=== PATIENT | male | born 1995 | race Caucasian/White ===

== ENCOUNTER 2017-05-01 18:52 | Outpatient (CLI) | payer SELFPAY | END 2017-05-01 19:17 | disposition EMS.NT | LOC: EMS 18:52 | PROVIDERS: ATTEND Surgery | DX: S00.01XA Abrasion of scalp, initial encounter (principal); S90.512A Abrasion, left ankle, initial encounter; S90.511A Abrasion, right ankle, initial encounter; V87.8XXA Person injured in other specified noncollision transport accidents involving motor vehicle (traffic), initial encounter; Y92.410 Unspecified street and highway as the place of occurrence of the external cause ==

== ENCOUNTER 2017-08-20 08:00 | Outpatient (CLI) | payer MEDICAID ==
[2017-08-20 19:00] LABS: BILIRUBIN,URINE NEGATIVE (NEGATIVE); GLUCOSE, URINE (UA) NEGATIVE (NEGATIVE); KETONES,URINE (UA) NEGATIVE (NEGATIVE); LEUKOCYTE ESTERASE, URINE NEGATIVE (NEGATIVE); NITRITE,URINE NEGATIVE (NEGATIVE); OCCULT BLOOD,URINE MODERATE (NEGATIVE); PROTEIN,URINE NEGATIVE (NEGATIVE); UROBILINOGEN,URINE 0.2 (NORMAL) E.U./dL (NORMAL)
[2017-08-20 19:05] LABS: BASOPHILS # (AUTO) 0.1 10^3/uL (0.0-0.1); BASOPHILS % (AUTO) 1.1 %; EOSINOPHILS # (AUTO) 0.5 10^3/uL (0.0-0.7); EOSINOPHILS % (AUTO) 6.5 %; HGB - HEMOGLOBIN 13.7 g/dL (14.0-18.0); LYMPHOCYTES # (AUTO) 3.3 10^3/uL (1.5-3.5); LYMPHOCYTES % (AUTO) 47.3 %; MEAN CORPUSCULAR HEMOGLOBIN 30.3 pg (27.0-31.0); MEAN CORPUSCULAR HGB CONC 32.7 g/dL (32.0-36.0); MEAN CORPUSCULAR VOLUME 92.8 fL (80.0-94.0); MEAN PLATELET VOLUME 8.1 fL (7.4-11.4); MONOCYTES # (AUTO) 0.5 10^3/uL (0.0-1.0); MONOCYTES % (AUTO) 7.5 %; NEUTROPHILS # (AUTO) 2.6 10^3/uL (1.5-6.6); NEUTROPHILS % (AUTO) 37.6 %; PLT - PLATELET COUNT 319 10^3/uL (130-450); RED BLOOD COUNT 4.51 10^6/uL (4.70-6.10); RED CELL DISTRIBUTION WIDTH 13.3 % (12.0-15.0)
[2017-08-20 19:13] LABS: BACTERIA,URINE Rare /HPF (None Seen); CLARITY,URINE CLEAR (CLEAR); SQUAMOUS EPITHELIAL CELL,UR RARE Squamous (<= Few)
[2017-08-20 19:22] LABS: ALBUMIN 4.3 g/dL (3.2-5.5); ALBUMIN/GLOBULIN RATIO 1.5 (1.0-2.2); BILIRUBIN,TOTAL 0.7 mg/dL (0.2-1.0); CALCIUM 8.8 mg/dL (8.5-10.3); CREATININE 0.8 mg/dL (0.6-1.2); TOTAL PROTEIN 7.2 g/dL (6.7-8.2)
[2017-08-21 11:28] LABS: HEPATITIS C ANTIBODY NON-REACTIVE (NON-REACTIVE)
[2017-08-21 15:01] LABS: HIV AG/AB 4TH GEN NON-REACTIVE (NON-REACTIVE)
== END 2017-08-20 08:01 | disposition home or self-care (01) ==
LOC: LAB.N 08:00
PROVIDERS: ATTEND Physician Assistant Medical
DX: R59.1 Generalized enlarged lymph nodes (principal); Z72.51 High risk heterosexual behavior; A51.0 Primary genital syphilis
CPT/HCPCS: 36415; 80053; 81001; 81599; 85025; 86592; 86803; 87086; 87389; 87491; 87591

== ENCOUNTER 2017-09-06 01:59 | Outpatient (CLI) | payer MEDICAID | END 2017-09-06 02:00 | disposition critical access hospital (66) | LOC: EMS 01:59 | PROVIDERS: ATTEND Surgery | DX: R45.1 Restlessness and agitation (principal) | CPT/HCPCS: A0425; A0429 ==

== ENCOUNTER 2017-09-06 02:22 | Emergency (ER) | payer MEDICAID ==
[2017-09-06] MEDS ORDERED: LORazepam 2 MG/ML VIAL IVP STA (02:37)
[2017-09-06] MEDS ORDERED: SODIUM CHLORIDE 0.9% 1,000 ML IV STA (02:37)
--- NOTE | 2017-09-06 02:37 | ED Physician Documentation ---
PD HPI OVERDOSE <Mehrdad Betts - Last Filed: 09/06/17 02:36> - History obtained from History obtained from: Patient - History of Present Illness Timing - onset: Last night Subtance(s) ingested: Illicit drug Associated symptoms: Agitated, Combative Contributing factors: Substance abuse Similar symptoms before: Diagnosis (methamphetamine) Recently seen: Not recently seen <Joaquin Butler - Last Filed: 09/06/17 13:24> - Stated complaint Stated Complaint: HALLUCINATING - Chief complaint Chief Complaint: MHE - Additional information Additional information: 22-year-old male who has been using methamphetamine since 12 years old states that last night please pick him up on a warrant and he had a panic attack. He states that he was doing methamphetamine last night he had a lot of hallucinations last night spent the night in the emergency department and feels improved this afternoon. (Joaquin Butler) Review of Systems Constitutional: denies: Fever Eyes: denies: Decreased vision Ears: denies: Ear pain Nose: denies: Congestion Throat: denies: Sore throat Cardiac: denies: Chest pain / pressure, Palpitations Respiratory: denies: Dyspnea GI: denies: Abdominal Pain, Nausea, Vomiting : denies: Dysuria Skin: denies: Rash Musculoskeletal: denies: Neck pain, Back pain, Extremity pain Neurologic: denies: Generalized weakness, Focal weakness, Numbness Psychiatric: reports: Hallucinations, Anxiety, Insomnia. denies: Depressed, Suicidal, Homicidal <Joaquin Butler - Last Filed: 09/06/17 13:24> PD PAST MEDICAL HISTORY - Past Surgical History Past Surgical History: No - Social History Does the pt smoke?: Yes Smoking Status: Current every day smoker Does the pt drink ETOH?: No Does the pt have substance abuse?: No <Mehrdad Betts - Last Filed: 09/06/17 02:36> <Joaquin Butler - Last Filed: 09/06/17 13:24> - Present Medications Home Medications: Ambulatory Orders Medication Instructions Recorded Confirmed Buprenorphine HCl/Naloxone HCl 09/06/17 [Suboxone 8 mg-2 mg Sl Film] - Allergies Allergies/Adverse Reactions: Allergies Allergy/AdvReac Type Severity Reaction Status Date / Time quetiapine [From Seroquel] Allergy Unknown Verified 09/06/17 02:37 PD ED PE NORMAL - Vitals Vital signs reviewed: Yes (hypertensive ) - General General: Alert and oriented X 3, No acute distress, Well developed/nourished - HEENT HEENT: Atraumatic, PERRL, EOMI, Ears normal, Other (dry mucous membranes) - Neck Neck: Supple, no meningeal sign, No bony TTP - Cardiac Cardiac: RRR, No murmur - Respiratory Respiratory: No respiratory distress, Clear bilaterally - Abdomen Abdomen: Soft, Non tender - Back Back: No CVA TTP, No spinal TTP - Derm Derm: Normal color, Warm and dry, No rash - Extremities Extremities: No deformity, No edema - Neuro Neuro: No motor deficit, No sensory deficit Eye Opening: Spontaneous Motor: Obeys Commands Verbal: Oriented GCS Score: 15 - Psych Psych: Normal mood, Normal affect <Joaquin Butler - Last Filed: 09/06/17 13:24> - Vitals Vitals: Vital Signs - 24 hr 09/06/17 09/06/17 09/06/17 02:23 04:12 09:22 Temperature 37.0 C Heart Rate 108 H 85 60 Respiratory 18 18 14 Rate Blood Pressure 148/93 H 107/50 L 109/50 L O2 Saturation 97 95 96 09/06/17 11:37 Temperature Heart Rate 56 L Respiratory 18 Rate Blood Pressure 106/56 L O2 Saturation 100 Oxygen O2 Source Room air - Labs Labs: Laboratory Tests 09/06/17 09/06/17 02:45 02:45 WBC 7.7 RBC 4.61 L Hgb 13.9 L Hct 41.6 L MCV 90.2 MCH 30.2 MCHC 33.5 RDW 12.6 Plt Count 300 MPV 7.7 Neut # 3.8 Lymph # 2.9 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 Today he has metabolized and is feeling better. He denies any recent illness he denies any current illness and would like to go home. (Joaquin Butler) Departure <Mehrdad Betts - Last Filed: 09/06/17 02:36> <Joaquin Butler - Last Filed: 09/06/17 13:24> - Departure Disposition: 01 Home, Self Care Condition: Stable Instructions: Abuse Meth Abuse and Addiction Follow-Up: Neil Gonsales MD [Primary Care Provider] -
[2017-09-06 03:04] LABS: BASOPHILS # (AUTO) 0.1 10^3/uL (0.0-0.1); EOSINOPHILS # (AUTO) 0.2 10^3/uL (0.0-0.7); EOSINOPHILS % (AUTO) 3.2 %; HGB - HEMOGLOBIN 13.9 g/dL (14.0-18.0); LYMPHOCYTES # (AUTO) 2.9 10^3/uL (1.5-3.5); LYMPHOCYTES % (AUTO) 37.3 %; MEAN CORPUSCULAR HEMOGLOBIN 30.2 pg (27.0-31.0); MEAN CORPUSCULAR HGB CONC 33.5 g/dL (32.0-36.0); MEAN CORPUSCULAR VOLUME 90.2 fL (80.0-94.0); MEAN PLATELET VOLUME 7.7 fL (7.4-11.4); MONOCYTES # (AUTO) 0.7 10^3/uL (0.0-1.0); MONOCYTES % (AUTO) 9.1 %; NEUTROPHILS # (AUTO) 3.8 10^3/uL (1.5-6.6); NEUTROPHILS % (AUTO) 49.4 %; PLT - PLATELET COUNT 300 10^3/uL (130-450); RED BLOOD COUNT 4.61 10^6/uL (4.70-6.10); RED CELL DISTRIBUTION WIDTH 12.6 % (12.0-15.0); WHITE BLOOD COUNT 7.7 x10^3/uL (4.8-10.8)
[2017-09-06 03:09] LABS: BUN - BLOOD UREA NITROGEN 30 mg/dL (6-20); CALCIUM 9.7 mg/dL (8.5-10.3); CARBON DIOXIDE - CO2 23 mmol/L (21-32); CHLORIDE 99 mmol/L (101-111); GFR - MDRD 93 (>89); GLUCOSE 72 mg/dL (70-100); SODIUM 137 mmol/L (135-145)
[2017-09-06] MEDS ORDERED: HALOPERIDOL 5 MG/ML VIAL IM STA (03:29)
[2017-09-06 11:37] VITALS: BP 106/56
--- NOTE | 2017-09-07 00:37 | ED Physician Documentation ---
PD HPI OVERDOSE - Stated complaint Stated Complaint: HALLUCINATING - Chief complaint Chief Complaint: MHE - History obtained from History obtained from: Patient, EMS, Police - History of Present Illness Timing - onset: Unknown Associated symptoms: Agitated, Hallucinations Contributing factors: Substance abuse. No: Depresssed, Suicidal Pain level max: 0 Pain level now: 0 Treatment [employer] HEL[employer]: No: Narcan, D50, Zofran, Airway management - Additional information Additional information: brought to ED by police and medics. he had been kicked out of his house tonight by his mother because she suspected he was using amphetamines again and, on ED arrival, he admits to using his suboxone with methamphetamines. he is twitchy , hyperkinectic, and requires four point restraints, Review of Systems Constitutional: reports: Reviewed and negative Eyes: reports: Reviewed and negative Cardiac: reports: Reviewed and negative Respiratory: reports: Reviewed and negative GI: reports: Reviewed and negative : denies: Dysuria, Frequency Neurologic: reports: Altered mental status. denies: Headache PD PAST MEDICAL HISTORY - Past Medical History Past Medical History: No - Past Surgical History Past Surgical History: No - Present Medications Home Medications: Ambulatory Orders Medication Instructions Recorded Confirmed Buprenorphine HCl/Naloxone HCl 09/06/17 [Suboxone 8 mg-2 mg Sl Film] - Allergies Allergies/Adverse Reactions: Allergies Allergy/AdvReac Type Severity Reaction Status Date / Time quetiapine [From Seroquel] Allergy Unknown Verified 09/06/17 02:37 - Social History Does the pt smoke?: Yes Smoking Status: Current every day smoker Does the pt drink ETOH?: No Does the pt have substance abuse?: Yes Substance Use and Type: Marijuana, Meth - POLST Patient has POLST: No PD ED PE NORMAL - Vitals Vital signs reviewed: Yes - General General: Alert and oriented X 3, Other (anxious, hyperactive, poor cooperation agiatated) - HEENT HEENT: PERRL, EOMI. No: Other (dried blood at tip or rrotht nare without active beledding) - Neck Neck: Supple, no meningeal sign - Cardiac Cardiac: RRR, No murmur - Respiratory Respiratory: No respiratory distress, Clear bilaterally, Other - Back Back: No CVA TTP - Derm Derm: Normal color, Warm and dry, No rash - Extremities Extremities: No edema Results - Vitals Vitals: Vital Signs - 24 hr 09/06/17 09/06/17 09/06/17 02:23 04:12 09:22 Temperature 37.0 C Heart Rate 108 H 85 60 Respiratory 18 18 14 Rate Blood Pressure 148/93 H 107/50 L 109/50 L O2 Saturation 97 95 96 09/06/17 11:37 Temperature Heart Rate 56 L Respiratory 18 Rate Blood Pressure 106/56 L O2 Saturation 100 Oxygen O2 Source Room air - Labs Labs: Laboratory Tests 09/06/17 09/06/17 02:45 02:45 WBC 7.7 RBC 4.61 L Hgb 13.9 L Hct 41.6 L MCV 90.2 MCH 30.2 MCHC 33.5 RDW 12.6 Plt Count 300 MPV 7.7 Neut # 3.8 Lymph # 2.9 [place] # 0.7 Eos # 0.2 Baso # 0.1 Absolute Nucleated RBC 0.01 Nucleated RBC % 0.2 Sodium 137 Potassium 3.9 Chloride 99 L Carbon Dioxide 23 Anion Gap 15.0 H BUN 30 H Creatinine 1.0 Estimated GFR (MDRD) 93 Glucose 72 Calcium 9.7 Ethyl Alcohol < 5.0 PD MEDICAL DECISION MAKING - ED course Complexity details: reviewed results, re-evaluated patient, considered differential, d/w patient, d/w family Departure - Departure Disposition: 01 Home, Self Care Clinical Impression: Methamphetamine abuse Condition: Stable Instructions: Abuse Meth Abuse and Addiction Follow-Up: Neil Gonsales MD [Primary Care Provider] - Discharge Date/Time: 09/06/17 13:42
== END 2017-09-06 13:42 | disposition home or self-care (01) ==
LOC: EDUNIT# → SUPCPDRO 02:22 → ED 02:22
DX: F15.129 Other stimulant abuse with intoxication, unspecified (principal); R44.3 Hallucinations, unspecified; F17.200 Nicotine dependence, unspecified, uncomplicated
CPT/HCPCS: 36415; 80048; 80320; 85025; 96361; 96372; 96374; 99284; J2060

== ENCOUNTER 2017-09-08 07:30 | Emergency (ER) | payer MEDICAID ==
[2017-09-08 07:42] VITALS: BP 144/66
--- NOTE | 2017-09-08 08:23 | ED Physician Documentation ---
PD HPI UPPER EXT INJURY - Stated complaint Stated Complaint: R SHLDR,L WRIST INJ - Chief complaint Chief Complaint: Ext Problem - History obtained from History obtained from: Patient - History of Present Illness Location: Right, Shoulder, Other (left wrist) Type of injury: Twist Where injury occurred: Home Timing - onset: How many days ago (2) Timing - duration: Days (2) Timing - details: Abrupt onset, Still present Improved by: Rest, Immobilization Worsened by: Moving, Palpating Associated symptoms: Swelling. No: Weakness, Numbness Contributing factors: No: Anticoagulated Similar symptoms before: Has not had sx before Recently seen: Emergency Dept - Additonal information Additional information: 22-year-old male was detained by police 2 days ago and he required restraint with intoxication on methamphetamine. He was kept in the emergency department overnight he metabolized to normal and was discharged he is come back in today with complaints of pain in the left wrist and the right shoulder which appear to be associated with being restrained by police. Review of Systems Constitutional: denies: Fever Eyes: denies: Decreased vision Ears: denies: Ear pain Nose: denies: Congestion Throat: denies: Sore throat Cardiac: denies: Chest pain / pressure Respiratory: denies: Dyspnea, Cough GI: denies: Abdominal Pain, Nausea, Vomiting : denies: Dysuria, Frequency Skin: denies: Rash Musculoskeletal: reports: Extremity pain, Joint pain, Joint swelling. denies: Neck pain, Back pain Neurologic: denies: Generalized weakness, Focal weakness, Numbness PD PAST MEDICAL HISTORY - Past Surgical History Past Surgical History: No - Present Medications Home Medications: Ambulatory Orders Medication Instructions Recorded Confirmed Buprenorphine HCl/Naloxone HCl 09/06/17 [Suboxone 8 mg-2 mg Sl Film] - Allergies Allergies/Adverse Reactions: Allergies Allergy/AdvReac Type Severity Reaction Status Date / Time quetiapine [From Seroquel] Allergy Unknown Verified 09/08/17 07:41 - Social History Does the pt smoke?: Yes Smoking Status: Current every day smoker Does the pt drink ETOH?: No Does the pt have substance abuse?: No PD ED PE NORMAL - Vitals Vital signs reviewed: Yes (Hypertensive) - General General: Alert and oriented X 3, No acute distress, Well developed/nourished - HEENT HEENT: Atraumatic, PERRL, EOMI - Neck Neck: Supple, no meningeal sign - Respiratory Respiratory: No respiratory distress - Derm Derm: Normal color, Warm and dry, No rash - Extremities Extremities: No deformity, No edema, Other (There is some mild point tenderness over the dorsum of the left wrist in the mid dorsal area he is able flex and extend the wrist has some pain with any movement of the wrist and hand distal neurovascular components are intact examination of the right shoulder show some point tenderness over the deltoid he is able to move the shoulder and full range of motion passively he has pain to movement of the shoulder actively. Distal neurovascular components are also intact.) - Neuro Neuro: No motor deficit, No sensory deficit Eye Opening: Spontaneous Motor: Obeys Commands Verbal: Oriented GCS Score: 15 - Psych Psych: Normal mood, Other (Affect is flattened) Results - Vitals Vitals: Vital Signs - 24 hr 09/08/17 09/08/17 07:39 07:52 Temperature 36.5 C Heart Rate 64 Respiratory 20 Rate Blood Pressure 144/66 H O2 Saturation 100 Oxygen O2 Source Room air - Rads (name of study) left wrist Radiology: Prelim report reviewed (Impression: Normal wrist radiography.), EMP read indepedently, See rad report right shoulder Radiology: Prelim report reviewed (Impression: Normal shoulder radiography.), EMP read indepedently, See rad report PD MEDICAL DECISION MAKING - ED course Complexity details: reviewed results, re-evaluated patient, considered differential, d/w patient ED course: 22-year-old male who was restrained by police 2 days ago has pain in his right shoulder and left wrist x-rays are without evidence of fracture he is placed into a sling and is a wrist splint. Departure - Departure Disposition: 01 Home, Self Care Clinical Impression: Left wrist sprain Qualifiers: Encounter type: initial encounter Qualified Code(s): S63.502A - Unspecified sprain of left wrist, initial encounter Sprain of shoulder, right Qualifiers: Encounter type: initial encounter Shoulder sprain type: unspecified sprain Qualified Code(s): S43.401A - Unspecified sprain of right shoulder joint, initial encounter Condition: Stable Instructions: ED Sprain Wrist, ED Sprain Shoulder Follow-Up: Neil Gonsales MD [Primary Care Provider] -
--- NOTE | 2017-09-08 08:57 | XRAY Report ---
EXAM: LEFT WRIST RADIOGRAPHY EXAM DATE: 09/08/2017 08:41 AM. CLINICAL HISTORY: Dorsal pain after restraint. COMPARISON: None. TECHNIQUE: 4 views. FINDINGS: Bones: Normal. No fractures or bone lesions. Joints: Normal. No subluxations. Soft Tissues: Normal. No soft tissue swelling. IMPRESSION: Normal wrist radiography. [facility] Referring Provider Line: [phone] SITE ID: [id number]
--- NOTE | 2017-09-08 08:57 | XRAY Preliminary Report ---
Exam: XR SHOULDER 3 VIEW RT IMPRESSION: Normal shoulder radiography. [facility] SITE ID: [id number]
--- NOTE | 2017-09-08 08:58 | XRAY Report ---
EXAM: RIGHT SHOULDER RADIOGRAPHY EXAM DATE: 09/08/2017 08:41 AM. CLINICAL HISTORY: Twisting injury deltoid pain . COMPARISON: None. TECHNIQUE: 3 views. FINDINGS: Bones: Normal. No fracture or bone lesion. Joints: The glenohumeral and acromioclavicular joints are normal. Soft tissues: The visualized hemithorax is unremarkable. No soft tissue swelling. IMPRESSION: Normal shoulder radiography. [facility] Referring Provider Line: [phone] SITE ID: [id number]
== END 2017-09-08 09:26 | disposition home or self-care (01) ==
LOC: ED 07:30
DX: S63.502A Unspecified sprain of left wrist, initial encounter (principal); S43.401A Unspecified sprain of right shoulder joint, initial encounter; Y35.813A Legal intervention involving manhandling, suspect injured, initial encounter; F17.200 Nicotine dependence, unspecified, uncomplicated; F15.90 Other stimulant use, unspecified, uncomplicated
CPT/HCPCS: 99282; 99283

== ENCOUNTER 2017-09-16 16:56 | Outpatient (CLI) | payer MEDICAID | END 2017-09-16 16:57 | disposition critical access hospital (66) | LOC: EMS 16:56 | PROVIDERS: ATTEND Surgery | DX: R25.9 Unspecified abnormal involuntary movements (principal) | CPT/HCPCS: A0425; A0429 ==

== ENCOUNTER 2017-09-16 17:13 | Emergency (ER) | payer MEDICAID ==
[2017-09-16 17:27] VITALS: BP 141/87
--- NOTE | 2017-09-16 17:29 | ED Physician Documentation ---
History of Present Illness - Stated complaint Stated Complaint: OD - History obtained from History obtained from: Patient, EMS - Additonal information Additional information: I guess he and a friend were in [employer] trying to shoplift and they were kicked out and acting funny and brought here for further evaluation and treatment. He admits to taking Suboxone today. Also some alcohol. Review of Systems Constitutional: denies: Fever, Chills Nose: reports: Rhinorrhea / runny nose Respiratory: denies: Dyspnea, Cough GI: reports: Abdominal Pain ("From carryin her"). denies: Nausea, Vomiting, Diarrhea PD PAST MEDICAL HISTORY - Past Surgical History Past Surgical History: No - Present Medications Home Medications: Ambulatory Orders Medication Instructions Recorded Confirmed Buprenorphine HCl/Naloxone HCl 09/06/17 [Suboxone 8 mg-2 mg Sl Film] - Allergies Allergies/Adverse Reactions: Allergies Allergy/AdvReac Type Severity Reaction Status Date / Time quetiapine [From Seroquel] Allergy Unknown Verified 09/08/17 07:41 - Social History Does the pt smoke?: Yes Smoking Status: Current every day smoker Does the pt drink ETOH?: No Does the pt have substance abuse?: No - POLST Patient has POLST: No PD ED PE NORMAL - Vitals Vital signs reviewed: Yes - General General: Alert and oriented X 3, Other (agitated, small pupils, somewhat altered ) - HEENT HEENT: Pharynx benign - Neck Neck: Supple, no meningeal sign, No bony TTP - Cardiac Cardiac: RRR, No murmur - Respiratory Respiratory: No respiratory distress, Clear bilaterally - Abdomen Abdomen: Normal bowel sounds, Soft, Non tender - Back Back: No CVA TTP, No spinal TTP - Derm Derm: Normal color, Warm and dry - Extremities Extremities: No edema, No calf tenderness / cord - Neuro Neuro: Alert and oriented X 3, Normal speech - Psych Psych: Normal mood, Normal affect Results - Vitals Vitals: Vital Signs - 24 hr 09/16/17 17:22 Temperature 37.8 C H Heart Rate 117 H Respiratory 18 Rate Blood Pressure 141/87 H O2 Saturation 96 Oxygen O2 Source Room air PD MEDICAL DECISION MAKING - ED course ED course: 22-year-old gentleman presents after apparent overdose of some sort of substances. Shortly after my evaluation he became belligerent and refused any workup including labs or prolonged observation in the emergency department and signed out AGAINST MEDICAL ADVICE and he does have capacity to do this. Departure - Departure Disposition: 07 Against Medical Advice Discharge Date/Time: 09/16/17 17:38
== END 2017-09-16 17:38 | disposition left against medical advice (07) ==
LOC: EDUNIT# → SUPCPDRO 17:13 → ED 17:13
DX: T50.901A Poisoning by unspecified drugs, medicaments and biological substances, accidental (unintentional), initial encounter (principal); R45.1 Restlessness and agitation; F17.200 Nicotine dependence, unspecified, uncomplicated; Z53.20 Procedure and treatment not carried out because of patient's decision for unspecified reasons
CPT/HCPCS: 80053; 80307; 80320; 80329; 83690; 85025; 99282; 99283

== ENCOUNTER → 2018-03-17 | Outpatient (CLI) | payer MEDICAID | LOC: LAB.R 15:56 | PROVIDERS: ATTEND Family Medicine | DX: Z11.3 Encounter for screening for infections with a predominantly sexual mode of transmission (principal) | CPT/HCPCS: 87491; 87591 ==

== ENCOUNTER 2018-03-31 08:00 | Outpatient (CLI) | payer MEDICAID ==
[2018-04-02 15:11] LABS: HIV AG/AB 4TH GEN NON-REACTIVE (NON-REACTIVE)
[2018-04-02 16:32] LABS: HEPATITIS C ANTIBODY NON-REACTIVE (NON-REACTIVE)
== END 2018-03-31 08:01 | disposition home or self-care (01) ==
LOC: LAB.R 08:00
PROVIDERS: ATTEND Family Medicine
DX: Z11.3 Encounter for screening for infections with a predominantly sexual mode of transmission (principal)
CPT/HCPCS: 36415; 81599; 86592; 86803; 87389; 87491; 87591

== ENCOUNTER 2018-12-21 17:36 | Outpatient (CLI) | payer MEDICAID | END 2018-12-21 17:37 | disposition critical access hospital (66) | LOC: EMS 17:36 | PROVIDERS: ATTEND Surgery | DX: R51 Headache (principal); R09.89 Other specified symptoms and signs involving the circulatory and respiratory systems; R10.9 Unspecified abdominal pain; F41.9 Anxiety disorder, unspecified | CPT/HCPCS: A0425; A0427; A0999 ==

== ENCOUNTER 2018-12-21 18:08 | Emergency (ER) | payer MEDICAID ==
[2018-12-21] MEDS ORDERED: NICOTINE 14 MG PATCH TOP STA (18:33)
--- NOTE | 2018-12-21 18:34 | ED Physician Documentation ---
History of Present Illness - Stated complaint Stated Complaint: ALLERGIC REACTION - Chief complaint Chief Complaint: Allergic Rx - History obtained from History obtained from: Patient - History of Present Illness Timing: Prior to arrival - Additonal information Additional information: This is a 23-year-old man who presents with complaints that he had a tin of chew outside of his home and he used it today at approximately half hour prior to presentation and was supposed to be regular flavored chew but it tasted like peppermint within about 6 minutes his face went numb in his hands and his lips the top of his head he felt really itchy like. [place] like he was just sinking down into the ground. He did not pass out. He did not fall. He says he is not using any sort of drugs at the time because 2 years ago he stopped drugs because they almost killed him. He did not take any Benadryl. Is not been vomiting. No fevers. States he is not currently employed. He was not feeling ill before this started. Review of Systems Unable to obtain: AMS Constitutional: denies: Fever Eyes: reports: Other (vision changes). denies: Loss of vision Cardiac: denies: Chest pain / pressure Respiratory: reports: Dyspnea GI: denies: Vomiting : denies: Dysuria Neurologic: reports: Generalized weakness, Numbness. denies: Syncope, LOC PD PAST MEDICAL HISTORY - Past Surgical History Past Surgical History: No - Allergies Allergies/Adverse Reactions: Allergies Allergy/AdvReac Type Severity Reaction Status Date / Time quetiapine [From Seroquel] Allergy Unknown Verified 12/21/18 18:15 - Social History Does the pt smoke?: Yes Smoking Status: Current every day smoker Does the pt drink ETOH?: No Does the pt have substance abuse?: No - POLST Patient has POLST: No PD ED PE NORMAL - Vitals Vital signs reviewed: Yes - General General: Alert and oriented X 3, No acute distress, Well developed/nourished - HEENT HEENT: Atraumatic, PERRL, EOMI, Moist mucous membranes - Neck Neck: Supple, no meningeal sign, No adenopathy - Cardiac Cardiac: RRR, No murmur - Respiratory Respiratory: No respiratory distress, Other (Crackles at R base) - Abdomen Abdomen: Normal bowel sounds, Soft, Non tender - Derm Derm: Normal color, Other (Multiple tattoos. There is a ruddiness to cheeks worse on the left than right) - Extremities Extremities: No deformity - Neuro Neuro: Alert and oriented X 3, edging machine feeder 2-12 intact, No motor deficit, No sensory deficit, Normal speech Results - Vitals Vitals: Vital Signs - 24 hr 12/21/18 12/21/18 18:12 20:37 Temperature 37.1 C 36.9 C Heart Rate 62 55 L Respiratory 18 16 Rate Blood Pressure 127/90 H 122/76 O2 Saturation 100 100 Oxygen O2 Source Room air - EKG (time done) 1842 Rate: Rate (enter#) Rhythm: NSR Intervals: Normal AR Ischemia: Non specific changes (j point elevation) Compare to prior EKG: Old EKG unavailable - Labs Labs: Laboratory Tests 12/21/18 12/21/18 12/21/18 18:43 18:43 18:55 WBC 6.7 RBC 4.62 L Hgb 14.6 Hct 43.4 MCV 93.8 MCH 31.6 H MCHC 33.7 RDW 12.7 Plt Count 271 MPV 7.6 Neut # (Auto) 3.9 Lymph # (Auto) 1.8 [place] # (Auto) 0.6 Eos # (Auto) 0.4 Baso # (Auto) 0.1 Absolute Nucleated RBC 0.00 Nucleated RBC % 0.0 Sodium 138 Potassium 3.5 Chloride 103 Carbon Dioxide 25 Anion Gap 10.0 BUN 15 Creatinine 0.8 Estimated GFR (MDRD) 120 Glucose 96 Calcium 9.3 Urine Color YELLOW Urine Clarity CLEAR Urine pH 7.0 Ur Specific [place] <=1.005 Urine Protein NEGATIVE Urine Glucose (UA) NEGATIVE Urine Ketones NEGATIVE Urine Occult Blood NEGATIVE Urine Nitrite NEGATIVE Urine Bilirubin NEGATIVE Urine Urobilinogen 0.2 (NORMAL) Ur Leukocyte Esterase NEGATIVE Ur Microscopic Review NOT INDICATED Urine Culture Comments NOT INDICATED Salicylates < 6.0 Urine Opiates Screen NEGATIVE Ur Oxycodone Screen NEGATIVE Urine Methadone Screen NEGATIVE Ur Propoxyphene Screen NEGATIVE Acetaminophen < 10 L Ur Barbiturates Screen NEGATIVE Ur Tricyclics Screen NEGATIVE Ur Phencyclidine Scrn NEGATIVE Ur Amphetamine Screen NEGATIVE U Methamphetamines Scrn NEGATIVE U Benzodiazepines Scrn NEGATIVE Urine Cocaine Screen NEGATIVE U Cannabinoids Screen NEGATIVE Ethyl Alcohol < 5.0 - Rads (name of study) CXR Radiology: EMP read indepedently (Neg acute), EMP read contemporaneously PD MEDICAL DECISION MAKING - ED course Complexity details: re-evaluated patient, d/w patient, d/w family ED course: Patient was monitored here in the department. No sign of anaphylaxis. Labs unremarkable. He is concerned this was psychedelic mushrooms which we do not have tests for. His drug screen was negative. Will D/C home. Departure - Departure Disposition: Home, Self Care Clinical Impression: History of paresthesia Condition: Good Instructions: ED Hyperventilation Syndrome Follow-Up: [facility] [Provider Group] Comments: Avoid using substances that you don't know for sure what they are. Discharge Date/Time: 12/21/18 20:54
[2018-12-21 18:51] LABS: BASOPHILS # (AUTO) 0.1 10^3/uL (0.0-0.1); BASOPHILS % (AUTO) 1.2 %; EOSINOPHILS # (AUTO) 0.4 10^3/uL (0.0-0.7); EOSINOPHILS % (AUTO) 5.7 %; HGB - HEMOGLOBIN 14.6 g/dL (14.0-18.0); LYMPHOCYTES # (AUTO) 1.8 10^3/uL (1.5-3.5); LYMPHOCYTES % (AUTO) 27.1 %; MEAN CORPUSCULAR HEMOGLOBIN 31.6 pg (27.0-31.0); MEAN CORPUSCULAR HGB CONC 33.7 g/dL (32.0-36.0); MEAN CORPUSCULAR VOLUME 93.8 fL (80.0-94.0); MEAN PLATELET VOLUME 7.6 fL (7.4-11.4); MONOCYTES # (AUTO) 0.6 10^3/uL (0.0-1.0); MONOCYTES % (AUTO) 8.2 %; NEUTROPHILS # (AUTO) 3.9 10^3/uL (1.5-6.6); NEUTROPHILS % (AUTO) 57.8 %; PLT - PLATELET COUNT 271 10^3/uL (130-450); RED BLOOD COUNT 4.62 10^6/uL (4.70-6.10); RED CELL DISTRIBUTION WIDTH 12.7 % (12.0-15.0); WHITE BLOOD COUNT 6.7 x10^3/uL (4.8-10.8)
--- NOTE | 2018-12-21 18:55 | XRAY Report ---
Reason: chest pain Procedure Date: 12/21/2018 Accession Number: [id number] / [id number] Procedure: XR - Chest 1 View X-Ray CPT Code: 26495 FULL RESULT: EXAM: CHEST RADIOGRAPHY EXAM DATE: 12/21/2018 06:49 PM. CLINICAL HISTORY: Chest pain. COMPARISON: None. TECHNIQUE: Upright AP view x2. FINDINGS: Lungs/Pleura: No focal opacities evident. No interstitial abnormality. No pleural effusion. No pneumothorax. Mediastinum: Within exam limitations, the cardiomediastinal contour is normal. Other: Minimal left convex lower thoracic spine curvature. IMPRESSION: Normal single view chest. [facility]
[2018-12-21 18:57] LABS: MUDS CUTOFF CONCENTRATIONS CUTOFF CONC BELOW:
[2018-12-21 18:59] LABS: BILIRUBIN,URINE NEGATIVE (NEGATIVE); GLUCOSE, URINE (UA) NEGATIVE (NEGATIVE); KETONES,URINE (UA) NEGATIVE (NEGATIVE); LEUKOCYTE ESTERASE, URINE NEGATIVE (NEGATIVE); NITRITE,URINE NEGATIVE (NEGATIVE); OCCULT BLOOD,URINE NEGATIVE (NEGATIVE); PROTEIN,URINE NEGATIVE (NEGATIVE); UROBILINOGEN,URINE 0.2 (NORMAL) E.U./dL (NORMAL)
[2018-12-21 19:02] LABS: ACETAMINOPHEN < 10 ug/mL (10-30); BUN - BLOOD UREA NITROGEN 15 mg/dL (6-20); CALCIUM 9.3 mg/dL (8.5-10.3); CARBON DIOXIDE - CO2 25 mmol/L (21-32); CHLORIDE 103 mmol/L (101-111); CREATININE 0.8 mg/dL (0.6-1.2); GFR - MDRD 120 (>89); GLUCOSE 96 mg/dL (70-100); SALICYLATE < 6.0 mg/dL; SODIUM 138 mmol/L (135-145)
[2018-12-21 19:02] LABS: CLARITY,URINE CLEAR (CLEAR)
[2018-12-21 19:09] LABS: AMPHETAMINE SCREEN,URINE NEGATIVE (NEGATIVE); BENZODIAZEPINES SCREEN, URINE NEGATIVE (NEGATIVE); COCAINE SCREEN URINE NEGATIVE (NEGATIVE); METHAMPHETAMINES SCREEN, URINE NEGATIVE (NEGATIVE); OPIATE SCREEN, URINE NEGATIVE (NEGATIVE); TRICYCLIC ANTIDEPRESSANT,URINE NEGATIVE (NEGATIVE)
[2018-12-21 19:10] LABS: METHADONE SCREEN, URINE NEGATIVE (NEGATIVE); OXYCODONE SCREEN, URINE NEGATIVE (NEGATIVE); PROPOXYPHENE SCREEN, URINE NEGATIVE (NEGATIVE)
[2018-12-21 20:38] VITALS: BP 122/76
== END 2018-12-21 20:54 | disposition home or self-care (01) ==
LOC: EDUNIT# → ED 18:08
DX: R20.2 Paresthesia of skin (principal); F17.200 Nicotine dependence, unspecified, uncomplicated
CPT/HCPCS: 36415; 71045; 80048; 80306; 80307; 80320; 80329; 81003; 85025; 93005; 99283; A9270; 81001; 87086

== ENCOUNTER 2019-02-16 | Emergency (ER) | payer OTHER, MEDICAID | END 2019-02-16 19:15 | disposition home or self-care (01) | DX: Z02.89 Encounter for other administrative examinations (principal); S60.811A Abrasion of right wrist, initial encounter; F17.200 Nicotine dependence, unspecified, uncomplicated; X58.XXXA Exposure to other specified factors, initial encounter | CPT/HCPCS: 99281 ==

== ENCOUNTER 2019-12-10 20:37 | Outpatient (CLI) | payer MEDICAID | END 2019-12-10 20:38 | disposition critical access hospital (66) | LOC: EMS 20:37 | PROVIDERS: ATTEND Surgery | DX: R46.89 Other symptoms and signs involving appearance and behavior (principal); R41.82 Altered mental status, unspecified | CPT/HCPCS: A0425; A0429; A0999 ==

== ENCOUNTER 2019-12-10 21:04 | Emergency (ER) | payer MEDICAID ==
[2019-12-10] MEDS ORDERED: SODIUM CHLORIDE 0.9% 1,000 ML IV STA (21:09)
[2019-12-10] MEDS ORDERED: LORazepam 2 MG/ML VIAL IVP STA (21:09)
--- NOTE | 2019-12-10 21:16 | ED Physician Documentation ---
<Wolf Lu M - Last Filed: 12/10/19 23:05> PD HPI MHE - Stated complaint Stated Complaint: MHE - History obtained from History obtained from: EMS - History of Present Illness Primary symptom: Other (24-year-old gentleman brought in by ambulance for because he was acting strange and running in the street and taking his clothes off. No history is available from the patient's because he looks quite high. He does admit to taking methamphetamines when I asked him that specifically.) Review of Systems Unable to obtain: Confused PD PAST MEDICAL HISTORY - Past Medical History Psych: Anxiety, Bipolar disorder - Past Surgical History Past Surgical History: No - Present Medications Home Medications: Ambulatory Orders Medication Instructions Recorded Confirmed Home Medications Unobtainable 12/10/19 12/10/19 [HOME MEDICATIONS UNOBTAINABLE] - Allergies Allergies/Adverse Reactions: Allergies Allergy/AdvReac Type Severity Reaction Status Date / Time quetiapine [From Seroquel] Allergy Unknown Verified 02/16/19 18:38 - Social History Does the pt smoke?: Yes Smoking Status: Current every day smoker Does the pt drink ETOH?: No Does the pt have substance abuse?: No - POLST Patient has POLST: No PD ED PE NORMAL - Vitals Vital signs reviewed: Yes - General General: Other (He is talking gibberish, he does make eye contact. He is quite intense and staring at you. He is hyperdynamic and moving a lot. Appears quite dehydrated.) - HEENT HEENT: Other (Dilated symmetric pupils, reactive, very dry mucous membranes) - Neck Neck: Supple, no meningeal sign, No bony TTP - Cardiac Cardiac: Other (Tachycardic but regular without murmur) - Respiratory Respiratory: No respiratory distress, Clear bilaterally - Abdomen Abdomen: Soft, Non tender - Derm Derm: Normal color, Warm and dry, Other (Disheveled and dirty) - Extremities Extremities: Other (Moving all 4 extremities with excellent strength, he is fighting with staff, requiring restraints.) - Neuro Neuro: No motor deficit, No sensory deficit Eye Opening: To Voice Motor: Obeys Commands Verbal: Inappropriate GCS Score: 12 PD MEDICAL DECISION MAKING - ED course ED course: 24-year-old gentleman brought in by ambulance accompanied by 's deputy because he is acting strangely, this is likely due to amphetamine use. He was given some IV fluids and Ativan and allowed to clear in the department. Departure - Departure Clinical Impression: Amphetamine abuse, Methamphetamine-induced psychotic disorder Condition: Stable Record reviewed to determine appropriate education?: Yes Instructions: ED Drug Abuse General Comments: Please avoid using drugs, they are very bad for you, they will kill you. Follow-up with your primary care physician, next available appointment. <Shaun Dubois - Last Filed: 12/11/19 06:36> Results - Vitals Vitals: Vital Signs - 24 hr 12/10/19 12/10/19 12/10/19 21:27 21:32 22:18 Temperature 36.7 C 36.7 C Heart Rate 102 H 102 H 124 H Respiratory 20 20 20 Rate Blood Pressure 106/90 H 106/90 H 128/99 H O2 Saturation 98 98 100 12/11/19 12/11/19 12/11/19 00:24 01:00 02:31 Temperature Heart Rate 101 H 78 128 H Respiratory 20 18 20 Rate Blood Pressure 122/61 108/68 O2 Saturation 99 98 97 12/11/19 12/11/19 03:20 05:20 Temperature Heart Rate 100 110 H Respiratory 18 24 Rate Blood Pressure 108/68 108/62 O2 Saturation 97 100 Oxygen O2 Source Room air - Labs Labs: Laboratory Tests 12/10/19 12/10/19 12/10/19 21:18 21:18 21:18 WBC 10.8 RBC 4.20 L Hgb 13.4 L Hct 40.0 L MCV 95.2 H MCH 31.9 H MCHC 33.5 RDW 12.5 Plt Count 335 MPV 9.1 Neut # (Auto) 8.4 H Lymph # (Auto) 1.4 L [place] # (Auto) 0.8 Eos # (Auto) 0.1 Baso # (Auto) 0.0 Absolute Nucleated RBC 0.00 Nucleated RBC % 0.0 Sodium 136 Potassium 3.1 L Chloride 99 L Carbon Dioxide 24 Anion Gap 13.0 BUN 14 Creatinine 1.2 Estimated GFR (MDRD) 74 L Glucose 97 Calcium 9.0 Total Bilirubin 1.1 H AST 48 H ALT 24 Alkaline Phosphatase 64 Total Creatine Kinase 528 H Total Protein 7.5 Albumin 4.3 Globulin 3.2 Albumin/Globulin Ratio 1.3 Lipase 23 TSH 0.96 Urine Color Urine Clarity Urine pH Ur Specific [place] Urine Protein Urine Glucose (UA) Urine Ketones Urine Occult Blood Urine Nitrite Urine Bilirubin Urine Urobilinogen Ur Leukocyte Esterase Urine RBC Urine WBC Ur Squamous Epith Cells Amorphous Sediment Urine Bacteria Urine Casts Ur Microscopic Review Urine Culture Comments Salicylates < 6.0 Urine Opiates Screen Ur Oxycodone Screen Urine Methadone Screen Ur Propoxyphene Screen Acetaminophen < 10 L Ur Barbiturates Screen Ur Tricyclics Screen Ur Phencyclidine Scrn Ur Amphetamine Screen U Methamphetamines Scrn U Benzodiazepines Scrn Urine Cocaine Screen U Cannabinoids Screen Ethyl Alcohol < 5.0 12/10/19 21:36 WBC RBC Hgb Hct MCV MCH MCHC RDW Plt Count MPV Neut # (Auto) Lymph # (Auto) [place] # (Auto) Eos # (Auto) Baso # (Auto) Absolute Nucleated RBC Nucleated RBC % Sodium Potassium Chloride Carbon Dioxide Anion Gap BUN Creatinine Estimated GFR (MDRD) Glucose Calcium Total Bilirubin AST ALT Alkaline Phosphatase Total Creatine Kinase Total Protein Albumin Globulin Albumin/Globulin Ratio Lipase TSH Urine Color YELLOW Urine Clarity HAZY Urine pH 6.0 Ur Specific [place] 1.025 Urine Protein 30 H Urine Glucose (UA) NEGATIVE Urine Ketones NEGATIVE Urine Occult Blood NEGATIVE Urine Nitrite NEGATIVE Urine Bilirubin NEGATIVE Urine Urobilinogen 0.2 (NORMAL) Ur Leukocyte Esterase NEGATIVE Urine RBC 0-5 Urine WBC 0-3 Ur Squamous Epith Cells FEW Squamous Amorphous Sediment Few Urine Bacteria None Seen Urine Casts 3-5 Hyaline Casts Ur Microscopic Review INDICATED Urine Culture Comments NOT INDICATED Salicylates Urine Opiates Screen NEGATIVE Ur Oxycodone Screen NEGATIVE Urine Methadone Screen NEGATIVE Ur Propoxyphene Screen NEGATIVE Acetaminophen Ur Barbiturates Screen NEGATIVE Ur Tricyclics Screen NEGATIVE Ur Phencyclidine Scrn NEGATIVE Ur Amphetamine Screen POSITIVE H U Methamphetamines Scrn NEGATIVE U Benzodiazepines Scrn NEGATIVE Urine Cocaine Screen NEGATIVE U Cannabinoids Screen NEGATIVE Ethyl Alcohol PD MEDICAL DECISION MAKING - ED course Complexity details: other (patient signed out to me at shift change by dr. lu. this patient has meth induced psychosis. he has been very aggressive to staff, spitting at them and trying to hit them , patient is in restraints for violent behavior and has been given chemical sedation with ativan, benadryl and haldol. this patient will be signed out at shift change to dr. darlene horn. )
[2019-12-10 21:23] LABS: BASOPHILS % (AUTO) 0.4 %; EOSINOPHILS # (AUTO) 0.1 10^3/uL (0.0-0.7); EOSINOPHILS % (AUTO) 0.5 %; HGB - HEMOGLOBIN 13.4 g/dL (14.0-18.0); LYMPHOCYTES # (AUTO) 1.4 10^3/uL (1.5-3.5); MEAN CORPUSCULAR HEMOGLOBIN 31.9 pg (27.0-31.0); MEAN CORPUSCULAR HGB CONC 33.5 g/dL (32.0-36.0); MEAN CORPUSCULAR VOLUME 95.2 fL (80.0-94.0); MEAN PLATELET VOLUME 9.1 fL (7.4-11.4); MONOCYTES # (AUTO) 0.8 10^3/uL (0.0-1.0); MONOCYTES % (AUTO) 7.7 %; NEUTROPHILS # (AUTO) 8.4 10^3/uL (1.5-6.6); PLT - PLATELET COUNT 335 10^3/uL (130-450); RED CELL DISTRIBUTION WIDTH 12.5 % (12.0-15.0); WHITE BLOOD COUNT 10.8 x10^3/uL (4.8-10.8)
[2019-12-10 21:38] LABS: ACETAMINOPHEN < 10 ug/mL (10-30); ALBUMIN 4.3 g/dL (3.2-5.5); ALBUMIN/GLOBULIN RATIO 1.3 (1.0-2.2); ALKALINE PHOSPHATASE 64 IU/L (42-121); ALT ALANINE AMINOTRANSFERASE 24 IU/L (10-60); AST ASPARTATE AMINOTRANSFERASE 48 IU/L (10-42); BILIRUBIN,TOTAL 1.1 mg/dL (0.2-1.0); BUN - BLOOD UREA NITROGEN 14 mg/dL (6-20); CARBON DIOXIDE - CO2 24 mmol/L (21-32); CHLORIDE 99 mmol/L (101-111); CK- CREATINE KINASE 528 IU/L (22-269); CREATININE 1.2 mg/dL (0.6-1.2); GLUCOSE 97 mg/dL (70-100); LIPASE 23 U/L (22-51); SALICYLATE < 6.0 mg/dL; SODIUM 136 mmol/L (135-145); TOTAL PROTEIN 7.5 g/dL (6.7-8.2)
[2019-12-10] MEDS ORDERED: POTASSIUM CHLOR 10 MEQ/100 ML 10 MEQ/100 ML BAG IV ONE (21:42)
[2019-12-10 21:44] LABS: BILIRUBIN,URINE NEGATIVE (NEGATIVE); GLUCOSE, URINE (UA) NEGATIVE (NEGATIVE); KETONES,URINE (UA) NEGATIVE (NEGATIVE); LEUKOCYTE ESTERASE, URINE NEGATIVE (NEGATIVE); NITRITE,URINE NEGATIVE (NEGATIVE); OCCULT BLOOD,URINE NEGATIVE (NEGATIVE); PROTEIN,URINE 30 mg/dL (NEGATIVE); UROBILINOGEN,URINE 0.2 (NORMAL) E.U./dL (NORMAL)
[2019-12-10 21:46] LABS: CLARITY,URINE HAZY (CLEAR)
[2019-12-10 21:56] LABS: AMORPHOUS SEDIMENT,UR Few /LPF; BACTERIA,URINE None Seen /HPF (None Seen); CASTS, URINE 3-5 Hyaline Casts /LPF; RBC,URINE 0-5 /HPF (0-5); SQUAMOUS EPITHELIAL CELL,UR FEW Squamous (<= Few)
[2019-12-10 21:57] LABS: AMPHETAMINE SCREEN,URINE POSITIVE (NEGATIVE); BENZODIAZEPINES SCREEN, URINE NEGATIVE (NEGATIVE); COCAINE SCREEN URINE NEGATIVE (NEGATIVE); METHADONE SCREEN, URINE NEGATIVE (NEGATIVE); METHAMPHETAMINES SCREEN, URINE NEGATIVE (NEGATIVE); OPIATE SCREEN, URINE NEGATIVE (NEGATIVE); OXYCODONE SCREEN, URINE NEGATIVE (NEGATIVE); PROPOXYPHENE SCREEN, URINE NEGATIVE (NEGATIVE); TRICYCLIC ANTIDEPRESSANT,URINE NEGATIVE (NEGATIVE)
[2019-12-11] MEDS ORDERED: LORazepam 2 MG/ML VIAL IVP STA ×4 (02:10→07:16)
[2019-12-11] MEDS ORDERED: diphenhydrAMINE INJ 50 MG/ML VIAL IVP STA (05:18)
[2019-12-11] MEDS ORDERED: HALOPERIDOL 5 MG/ML VIAL IVP ONE (05:19)
--- NOTE | 2019-12-11 16:25 | ED Physician Documentation ---
ED Addendum - Addendum Addendum: 12/11/19 16:24 The patient premeds rested through the day. He was roused at times and given water and fluids. He was interactive but then would fall back asleep. He was seen by social work and they were not able to offer any acute detox or such. Nursing called the patient's father who is willing to pick him up and bring him home. We waited a few more hours for the patient to be arousable and sturdy enough to be able to do that. At this point we will call back his father and h ave him come pick him up. No problems encountered through the time of my shift so far.
[2019-12-11 17:30] VITALS: BP 106/58
== END 2019-12-11 17:35 | disposition home or self-care (01) ==
LOC: EDUNIT# → ED 21:04
DX: F15.159 Other stimulant abuse with stimulant-induced psychotic disorder, unspecified (principal); Z78.1 Physical restraint status; F17.200 Nicotine dependence, unspecified, uncomplicated
CPT/HCPCS: 36415; 51701; 80053; 80306; 80307; 80320; 80329; 81001; 82550; 83690; 84443; 85025; 96361; 96365; 96375; 96376; 99281; 99285; J1200; J2060; 81003; 87086

== ENCOUNTER 2019-12-22 02:21 | Outpatient (CLI) | payer MEDICAID | END 2019-12-22 02:22 | disposition critical access hospital (66) | LOC: EMS 02:21 | PROVIDERS: ATTEND Surgery | DX: R45.1 Restlessness and agitation (principal); R41.82 Altered mental status, unspecified | CPT/HCPCS: A0425; A0429; A0999 ==

== ENCOUNTER 2019-12-22 02:40 | Emergency (ER) | payer OTHER, MEDICAID ==
[2019-12-22 02:50] VITALS: BP 111/74
--- NOTE | 2019-12-22 02:50 | ED Physician Documentation ---
History of Present Illness - Stated complaint Stated Complaint: MHE - History obtained from History obtained from: Patient (Patient is a 24-year-old male brought in by EMS and law enforcement for medical clearance to go to penitentiary. The patient does admit to using drugs tonight he denies any homicidal or suicidal thoughts or intents he denies any specific injuries.), EMS (the patient is a 24-year-old male brought in by EMS [place] after he was arrested he is brought in for medical clearance for penitentiary. Patient denies any specific complaints.) Review of Systems Ten Systems: 10 systems reviewed and negative Constitutional: reports: Reviewed and negative Eyes: reports: Reviewed and negative Ears: reports: Reviewed and negative Nose: reports: Reviewed and negative Throat: reports: Reviewed and negative Cardiac: reports: Reviewed and negative Respiratory: reports: Reviewed and negative GI: reports: Reviewed and negative : reports: Reviewed and negative Skin: reports: Reviewed and negative Musculoskeletal: reports: Reviewed and negative Neurologic: reports: Reviewed and negative Psychiatric: reports: Reviewed and negative Endocrine: reports: Reviewed and negative Immunocompromised: reports: Reviewed and negative PD PAST MEDICAL HISTORY - Past Medical History Psych: Anxiety, Bipolar disorder - Past Surgical History Past Surgical History: No - Present Medications Home Medications: Ambulatory Orders Medication Instructions Recorded Confirmed Home Medications Unobtainable 12/10/19 12/10/19 [HOME MEDICATIONS UNOBTAINABLE] - Allergies Allergies/Adverse Reactions: Allergies Allergy/AdvReac Type Severity Reaction Status Date / Time quetiapine [From Seroquel] Allergy Unknown Verified 12/22/19 02:50 - Social History Does the pt smoke?: Yes Smoking Status: Current every day smoker Does the pt drink ETOH?: No Does the pt have substance abuse?: No - POLST Patient has POLST: No PD ED PE NORMAL - Vitals Vital signs reviewed: Yes - General General: Alert and oriented X 3, No acute distress - HEENT HEENT: PERRL - Neck Neck: Supple, no meningeal sign - Cardiac Cardiac: RRR, No murmur - Respiratory Respiratory: Clear bilaterally - Abdomen Abdomen: Normal bowel sounds, Soft, Non tender, Non distended - Derm Derm: Warm and dry - Extremities Extremities: No deformity - Neuro Neuro: Alert and oriented X 3 - Psych Psych: Normal mood, Normal affect Results - Vitals Vitals: Vital Signs - 24 hr 12/22/19 12/22/19 02:46 02:54 Temperature 37.7 C H Heart Rate 71 Respiratory 18 16 Rate Blood Pressure 111/74 O2 Saturation 95 Oxygen O2 Source Room air PD MEDICAL DECISION MAKING - ED course Complexity details: considered differential (Patient is medically cleared to go to penitentiary.Patient does appear that he has used some sort of substance but he has no life-threatening or emergent medical conditions. This time the patient is medically cleared to go to penitentiary.) Departure - Departure Disposition: 01 Home, Self Care Clinical Impression: Medical clearance for incarceration, Substance abuse Condition: Stable Instructions: ED Drug Abuse General Follow-Up: your, doctor [Other] Comments: follow up with medical provider at penitentiary today. Discharge Date/Time: 12/22/19 02:59
== END 2019-12-22 02:59 | disposition home or self-care (01) ==
LOC: EDSEX → EDUNIT# → ED 02:40
DX: F19.10 Other psychoactive substance abuse, uncomplicated (principal); F17.200 Nicotine dependence, unspecified, uncomplicated
CPT/HCPCS: 99283

== ENCOUNTER 2021-10-08 20:11 | Emergency (ER) | payer MEDICAID ==
--- NOTE | 2021-10-08 20:42 | ED Physician Documentation ---
History of Present Illness - Stated complaint Stated Complaint: FOOT PX,HEADACHE - Chief complaint Chief Complaint: Ext Problem - History obtained from History obtained from: Patient - History of Present Illness Timing: Chronic Improved by: rest Worsened by: ambulation - Additonal information Additional information: c/o bilateral foot redness, swelling, pain. He says he has had this, episodically, for "many years" (per patient). I ask why he comes to the ED today given that he is describing a recurrent and chronic issues, he says "I can't handle it any more". Denies injury. Review of Systems Constitutional: denies: Fever Cardiac: reports: Reviewed and negative Respiratory: reports: Reviewed and negative GI: reports: Reviewed and negative Musculoskeletal: reports: Extremity pain PD PAST MEDICAL HISTORY - Past Medical History Past Medical History: Yes Cardiovascular: None Respiratory: None Neuro: None Endocrine/Autoimmune: None GI: None : None HEENT: None Psych: Anxiety, Bipolar disorder Musculoskeletal: None Derm: None - Past Surgical History Past Surgical History: No - Present Medications Home Medications: Ambulatory Orders Medication Instructions Recorded Confirmed Butenafine HCl 1 film TP BID 7 Days #30 gm 10/08/21 - Allergies Allergies/Adverse Reactions: Allergies Allergy/AdvReac Type Severity Reaction Status Date / Time quetiapine [From Seroquel] Allergy Unknown Verified 10/08/21 20:20 - Social History Does the pt smoke?: Yes Smoking Status: Current every day smoker Does the pt drink ETOH?: No Does the pt have substance abuse?: No - Immunizations Immunizations are current?: No - POLST Patient has POLST: No PD ED PE NORMAL - Vitals Vital signs reviewed: Yes - General General: Alert and oriented X 3, No acute distress, Well developed/nourished - Cardiac Cardiac: RRR, No murmur - Respiratory Respiratory: No respiratory distress, Clear bilaterally - Abdomen Abdomen: Soft, Non tender PD ED PE EXPANDED - Extremities Extremities: Other (both feet have mild erythema of toes with white plaquing and maceration between all toes. there is no TTP, no fluctuance, no increased/abnormal warmth/heat to touch) - Psych Psych: Poor eye contact, Other (odd affect, speaks quietly and often mumbling requiring me to ask him to repeat himself (often answers as quietly and again mumbling)) Results - Vitals Vitals: Vital Signs - 24 hr 10/08/21 10/08/21 10/08/21 20:14 20:42 21:23 Temperature 36.7 C 36.7 C Heart Rate 76 75 Respiratory 16 16 16 Rate Blood Pressure 125/72 123/71 O2 Saturation 98 99 Oxygen O2 Source Room air PD MEDICAL DECISION MAKING - ED course Complexity details: considered differential, d/w patient ED course: appears to have bilateral tinea pedis, provided rx for antifungal (topical). Departure - Departure Disposition: Home, Self Care Clinical Impression: Tinea pedis Qualifiers: Laterality: bilateral Qualified Code(s): B35.3 - Tinea pedis Condition: Good Instructions: ED Fungal Infec Athlete Foot Follow-Up: Elise Betts ARNP [Physician No Access] - Within 1 week Prescriptions: Butenafine HCl 1 film TP BID 7 Days #30 gm Comments: Wash your feet at least once per day and then thoroughly dry them and then put dry socks on. Wearing wet or moist socks will only perpetuate the problem Discharge Date/Time: 10/08/21 21:23
[2021-10-08 21:24] VITALS: BP 123/71
== END 2021-10-08 21:23 | disposition home or self-care (01) ==
LOC: ED 20:11
DX: B35.3 Tinea pedis (principal); F17.200 Nicotine dependence, unspecified, uncomplicated
CPT/HCPCS: 99282

== ENCOUNTER 2022-08-30 16:31 | Emergency (ER) | payer MEDICAID ==
--- NOTE | 2022-08-30 17:23 | ED Physician Documentation ---
PD HPI MHE - Stated complaint Stated Complaint: NICOTINE WITHDRAWAL - Chief complaint Chief Complaint: MHE - History obtained from History obtained from: Patient, Family - History of Present Illness Pain level max: 0 Pain level now: 0 Contributing factors: Substance abuse - drugs - Additional information Additional information: Patient is a 27-year-old male who presents to the emergency department with his father. He states that his last use of methamphetamine was about a month ago. He states he feels like he is going through nicotine withdrawal. He states that he lives at home with his parents and that they brought him here to help with his withdrawal. Father states that they spoke with the [facility] crisis line who recommended he come to the emergency department. His father tried to request a D MHP evaluation at home, but reportedly the crisis line refused this. The patient is not suicidal or homicidal. He is not having hallucinations. He is on psychiatric medication, but states that they just make him drowsy. Review of Systems Constitutional: denies: Fever, Chills Nose: denies: Rhinorrhea / runny nose, Congestion Respiratory: denies: Cough GI: denies: Abdominal Pain, Nausea, Vomiting, Diarrhea Skin: denies: Rash Musculoskeletal: denies: Neck pain, Back pain Neurologic: denies: Headache PD PAST MEDICAL HISTORY - Past Medical History Cardiovascular: None Respiratory: None Neuro: None Endocrine/Autoimmune: None GI: None : None HEENT: None Psych: Anxiety, Bipolar disorder Musculoskeletal: None Derm: None - Past Surgical History Past Surgical History: No - Present Medications Home Medications: Ambulatory Orders Medication Instructions Recorded Confirmed Citalopram [CeleXA] 20 mg PO DAILY 06/04/22 06/04/22 Citalopram [CeleXA] 20 mg PO DAILY #30 tablet 06/04/22 Divalproex [Alessandro Bocanegra] 250 mg PO BID #60 tab 06/04/22 OLANZapine [Olanzapine] 10 mg PO DAILY PM #30 tab 06/04/22 traZODone [Desyrel] 50 mg PO HS #30 tab 06/04/22 - Allergies Allergies/Adverse Reactions: Allergies Allergy/AdvReac Type Severity Reaction Status Date / Time quetiapine [From Seroquel] Allergy Unknown Verified 08/30/22 16:51 - Social History Does the pt smoke?: Yes Smoking Status: Current every day smoker Does the pt drink ETOH?: No Does the pt have substance abuse?: No - Immunizations Immunizations are current?: No - POLST Patient has POLST: No PD ED PE NORMAL - Vitals Vital signs reviewed: Yes - General General: Alert and oriented X 3, No acute distress, Well developed/nourished - HEENT HEENT: Moist mucous membranes - Neck Neck: Supple, no meningeal sign - Cardiac Cardiac: RRR, Strong equal pulses - Respiratory Respiratory: No respiratory distress, Clear bilaterally - Abdomen Abdomen: Normal bowel sounds, Soft, Non tender, Non distended - Derm Derm: Warm and dry - Extremities Extremities: No edema - Neuro Neuro: Alert and oriented X 3 - Psych Psych: Normal mood, Normal affect - Free text exam Free text exam: agitated Results - Vitals Vitals: Vital Signs - 24 hr 08/30/22 08/30/22 16:42 21:29 Temperature 37 C Heart Rate 150 H 88 Respiratory 28 H 23 Rate Blood Pressure 153/81 H 150/114 H O2 Saturation 100 99 Oxygen O2 Source Room air - Labs Labs: Laboratory Tests 08/30/22 08/30/22 08/30/22 17:30 17:33 17:33 WBC 12.9 H RBC 5.13 Hgb 15.7 Hct 47.9 MCV 93.4 MCH 30.6 MCHC 32.8 RDW 12.3 Plt Count 378 MPV 9.1 Neut # (Auto) 9.3 H Lymph # (Auto) 2.1 Kin[place] # (Auto) 1.5 H Eos # (Auto) 0.0 Baso # (Auto) 0.0 Absolute Nucleated RBC 0.00 Nucleated RBC % 0.0 Sodium 142 Potassium 3.7 Chloride 104 Carbon Dioxide 26 Anion Gap 12.0 BUN 26 H Creatinine 1.1 Estimated GFR (MDRD) 80 L Glucose 125 H Calcium 10.0 Total Bilirubin 1.5 H AST 130 H ALT 71 H Alkaline Phosphatase 66 Total Protein 8.8 H Albumin 5.0 Globulin 3.8 Albumin/Globulin Ratio 1.3 Lipase 27 TSH Urine Color YELLOW Urine Clarity CLEAR Urine pH 6.0 Ur Specific [place] >=1.030 H Urine Protein NEGATIVE Urine Glucose (UA) NEGATIVE Urine Ketones TRACE Urine Occult Blood TRACE-INTA Urine Nitrite NEGATIVE Urine Bilirubin NEGATIVE Urine Urobilinogen 0.2 (NORMAL) Ur Leukocyte Esterase NEGATIVE Ur Microscopic Review NOT INDICATED Urine Culture Comments NOT INDICATED Salicylates < 6.0 Urine Opiates Screen NEGATIVE Ur Oxycodone Screen NEGATIVE Urine Methadone Screen NEGATIVE Ur Propoxyphene Screen NEGATIVE Acetaminophen < 10 L Ur Barbiturates Screen NEGATIVE Ur Tricyclics Screen NEGATIVE Ur Phencyclidine Scrn NEGATIVE Ur Amphetamine Screen POSITIVE H U Methamphetamines Scrn POSITIVE H U Benzodiazepines Scrn NEGATIVE Urine Cocaine Screen NEGATIVE U Cannabinoids Screen NEGATIVE Ethyl Alcohol < 5.0 08/30/22 17:33 WBC RBC Hgb Hct MCV MCH MCHC RDW Plt Count MPV Neut # (Auto) Lymph # (Auto) [place] # (Auto) Eos # (Auto) Baso # (Auto) Absolute Nucleated RBC Nucleated RBC % Sodium Potassium Chloride Carbon Dioxide Anion Gap BUN Creatinine Estimated GFR (MDRD) Glucose Calcium Total Bilirubin AST ALT Alkaline Phosphatase Total Protein Albumin Globulin Albumin/Globulin Ratio Lipase TSH 3.55 Urine Color Urine Clarity Urine pH Ur Specific [place] Urine Protein Urine Glucose (UA) Urine Ketones Urine Occult Blood Urine Nitrite Urine Bilirubin Urine Urobilinogen Ur Leukocyte Esterase Ur Microscopic Review Urine Culture Comments Salicylates Urine Opiates Screen Ur Oxycodone Screen Urine Methadone Screen Ur Propoxyphene Screen Acetaminophen Ur Barbiturates Screen Ur Tricyclics Screen Ur Phencyclidine Scrn Ur Amphetamine Screen U Methamphetamines Scrn U Benzodiazepines Scrn Urine Cocaine Screen U Cannabinoids Screen Ethyl Alcohol PD Medical Decision Making - ED course Complexity details: reviewed results, re-evaluated patient, considered differential, d/w patient ED course: 27-year-old male with a methamphetamine abuse issue. Brought into the emergency department by his father. No significant laboratory abnormalities that would preclude him from receiving psychiatric care. Telepsychiatry was consulted, they recommend voluntary inpatient admission. They recommend that if the patient tries to leave that he should be evaluated by a DCR for potential involuntary hold. Patient is not suicidal, homicidal. We will attempt to find a bed. Patient will be signed out to the [facility] emergency department Physician. This document was made in part using voice recognition software. While efforts are made to proofread this document, sound alike and grammatical errors may occur. Departure - Departure Clinical Impression: Methamphetamine abuse, Psychiatric symptoms Condition: Stable
[2022-08-30 17:38] LABS: BASOPHILS % (AUTO) 0.3 %; EOSINOPHILS % (AUTO) 0.2 %; HCT - HEMATOCRIT 47.9 % (42.0-52.0); HGB - HEMOGLOBIN 15.7 g/dL (14.0-18.0); LYMPHOCYTES # (AUTO) 2.1 10^3/uL (1.5-3.5); LYMPHOCYTES % (AUTO) 16.2 %; MEAN CORPUSCULAR HEMOGLOBIN 30.6 pg (27.0-31.0); MEAN CORPUSCULAR HGB CONC 32.8 g/dL (32.0-36.0); MEAN CORPUSCULAR VOLUME 93.4 fL (80.0-94.0); MEAN PLATELET VOLUME 9.1 fL (7.4-11.4); MONOCYTES # (AUTO) 1.5 10^3/uL (0.0-1.0); MONOCYTES % (AUTO) 11.2 %; NEUTROPHILS # (AUTO) 9.3 10^3/uL (1.5-6.6); NEUTROPHILS % (AUTO) 71.9 %; PLT - PLATELET COUNT 378 10^3/uL (130-450); RED BLOOD COUNT 5.13 10^6/uL (4.70-6.10); RED CELL DISTRIBUTION WIDTH 12.3 % (12.0-15.0); WHITE BLOOD COUNT 12.9 x10^3/uL (4.8-10.8)
[2022-08-30 17:54] LABS: ACETAMINOPHEN < 10 ug/mL (10-30); ALBUMIN/GLOBULIN RATIO 1.3 (1.0-2.2); ALKALINE PHOSPHATASE 66 IU/L (42-121); ALT ALANINE AMINOTRANSFERASE 71 IU/L (10-60); AST ASPARTATE AMINOTRANSFERASE 130 IU/L (10-42); BILIRUBIN,TOTAL 1.5 mg/dL (0.2-1.0); BUN - BLOOD UREA NITROGEN 26 mg/dL (6-20); CARBON DIOXIDE - CO2 26 mmol/L (21-32); CHLORIDE 104 mmol/L (101-111); CREATININE 1.1 mg/dL (0.6-1.2); ETOH - ETHANOL < 5.0 mg/dL; GFR - MDRD 80 (>89); GLUCOSE 125 mg/dL (70-100); LIPASE 27 U/L (22-51); POTASSIUM 3.7 mmol/L (3.5-5.0); SALICYLATE < 6.0 mg/dL; SODIUM 142 mmol/L (135-145); TOTAL PROTEIN 8.8 g/dL (6.7-8.2)
[2022-08-30 18:00] LABS: MUDS CUTOFF CONCENTRATIONS CUTOFF CONC BELOW:
[2022-08-30 18:02] LABS: BILIRUBIN,URINE NEGATIVE (NEGATIVE); GLUCOSE, URINE (UA) NEGATIVE (NEGATIVE); KETONES,URINE (UA) TRACE mg/dL (NEGATIVE); LEUKOCYTE ESTERASE, URINE NEGATIVE (NEGATIVE); NITRITE,URINE NEGATIVE (NEGATIVE); OCCULT BLOOD,URINE TRACE-INTA (NEGATIVE); PROTEIN,URINE NEGATIVE (NEGATIVE); UROBILINOGEN,URINE 0.2 (NORMAL) E.U./dL (NORMAL)
[2022-08-30 18:04] LABS: CLARITY,URINE CLEAR (CLEAR)
[2022-08-30 18:13] LABS: AMPHETAMINE SCREEN,URINE POSITIVE (NEGATIVE); BARBITURATE SCREEN,UR NEGATIVE (NEGATIVE); BENZODIAZEPINES SCREEN, URINE NEGATIVE (NEGATIVE); COCAINE SCREEN URINE NEGATIVE (NEGATIVE); METHADONE SCREEN, URINE NEGATIVE (NEGATIVE); METHAMPHETAMINES SCREEN, URINE POSITIVE (NEGATIVE); OPIATE SCREEN, URINE NEGATIVE (NEGATIVE); OXYCODONE SCREEN, URINE NEGATIVE (NEGATIVE); PROPOXYPHENE SCREEN, URINE NEGATIVE (NEGATIVE); THC CANNABINOID SCREEN, URINE NEGATIVE (NEGATIVE); TRICYCLIC ANTIDEPRESSANT,URINE NEGATIVE (NEGATIVE)
--- NOTE | 2022-08-30 22:05 | TELEPSYCH PHYS NOTE ---
Telepsych Consultation Note Consult: Array Name: VIANNEY COOPER : 1995 Date and Time: 08/31/2022 12:32:06 AM Location of the patient: [facility] ED Location of the doctor: [place] Length of consult: 23min This evaluation was conducted via video telepsychiatry with the assistance of onsite staff Reason for consult: withdrawals and detox Requested by: Cal Navarro MD History of Present Illness: ? Parts of this note were dictated using voice recognition software and may contain small irregularities and grammatical errors which are unintentional. ? The identity of the patient was verified. The patient was then informed about the process of utilizing telemedicine for evaluation and treatment. Discussed the ability to Opt-out of the tele medicine encounter, ask questions, security issues, and sharing information. The patient consented to proceed with the tele medicine encounter. This evaluation was conducted via video telepsychiatry with assistance of onsite staff ? 27 year old male with a reported history of anxiety and depression in stimulant use disorder possible underlying bipolar disorder who presented to the emergency room with his father reporting that he was in nicotine withdrawals. The patient was diaphoretic. He's clearly disorganized difficulty answering questions. He reports that he's there because his father brought him there. He denies any mood symptoms and then talks about Risperdal and how it's helped him. He denies suicidal or homicidal ideations intense or plans he denies auditory or visual hallucinations he makes bizarre statements at times. His father was present in the room who reports that the patient started isolating. He had just gotten out of rehab not long ago. And he was in behavioral health prior to that. He reports that they're raising his son. At this time the patient cannot return home due to his behaviors. He reports that he was threatening his mother. He was making bizarre statements and stating that he was in nicotine withdrawal. Collateral Contacted: No Reason for not contacting the collateral:No answer Phone Number: went to [facility] father [phone] Sleep issues?: Yes Sleep Quantity: lays around all day but reports that " I am meditating " Sleep Quality: " its ok at times like now I am talking to you in some way but I am asleep inside my mind" Psychiatric History/Treatment History: Past diagnoses: amphetamine use disorder, psychosis Hospitalizations: Yes Description: reports multiple since age 14 reports recently one but he is hard to follow because some of the information makes no since Current Treatment:Yes Medication management: Yes Medications: Risperidone 2 mg at bed Therapy: No Suicide Assessment: PSS-3: 1) Over the past 2 weeks have you felt down, depressed or hopeless? Yes 2) Over the past 2 weeks have you had thoughts of killing yourself? No 3) Have you ever in your life attempted to kill yourself? Yes Within the past 6 months? No [facility] Safety Assessment: Risk Factors Stressors: " i have no were to live i cant live at home, I am withdrawing I need to be in a safe place" Attempts/Self-injury: Yes Description: " I uses a bunch of heroin one time I just did not want to feel or be" " I have taken the Seroquel" Impulsivity:Yes Description: substances, moods Drug/Alcohol History:Yes Description: heroin past denies present use, meth- current use crystal by inhalation, tobacco 3 pks daily Trauma History:Unknown-NA Access to firearms:No HI/Violence/Property destruction:No Legal: Yes Description: " i got a trespassing charge the other day, it was loitering but they charged me with trespassing and put me in the hospital" Family Psych History:Unknown-NA Family History of suicide:Unknown-NA Protective Factors: Can handle stress well? No Description: the patient is not stable and delusional about reality Muslim? Unknown-NA Description: he has religiosity -grander External: Social supports/ Therapeutic relationships: No Relationship history: " I don't like people, I with people would just and blow up, the whole island just disappear" Living situation: " I was living with my dad but i have all of my stuff with me here" Employment: No Education: unk Responsibility to family/children/work: No Future orientation:No Health History: Medical History: reports that his nose has been bleeding and burning today Medications & Freq: reports that he takes Risperdal 2 mg at bed Allergies: Seroquel Mental Status Exam: Appearance and Attire: Good eye contact, Disheveled, intense stare Psychomotor agitation: Psychomotor agitation Attitude and behavior: Restless, Guarded, Responding to internal stimuli Speech: No abnormality, Mood: Manic, Anxious Affect: Flat Thought process: Coherent Thought content: No suicidal ideation, No homicidal ideation, Paranoia, Delusions, Ideas of grandeur Perception: Auditory hallucinations Intel: Average Abstract: Appropriate Language: No abnormality Orientation: Oriented x 4 Sense: Distractible Knowledge: Appropriate for education and socioeconomic status Memory: Intact Insight: Lack of awareness of problems, Failure to recognize benefits of treatment, Lack of motivation to change health risk behaviors, Severe impairment Judgement: Severe impairment, Impaired in interactions with others, Impaired in response and decision making, Impaired in responses to current situation and behavior Gait: No abnormality Impression/Risk Assessment: Current Suicide Risk Elevated? No Current Violence Risk Elevated? Yes Issues with ability to care for self? Yes Summary: 27 year old male with a history of stimulant dependence in psychosis secondary to stimulate use disorder an anxiety and depression. The patient recently had then in the behavioral health unit and then rehabilitation and most recently discharged. The patient's isolating and parents became worried. He was making bizarre statements became threatening towards his mother. At that time his father brought him to the emergency room patient is making bizarre statements about bouquets and is this organized tangential. He denies using methamphetamine however it was positive for this. He has an intense stare inability to sit still. At this time he appears to be intoxicated with amphetamines along with having some psychosis due to this in perceptual disturbances. At this time the patient would benefit from inpatient psychiatric hospitalization. 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 Yes Description: Therapy: supportive Follow up needed while in the hospital?: Yes Number of times: as needed Discussed plan with onsite team coordinator: Yes Who Cal Navarro MD Other: List names and roles of persons who participated in consult: Dr. Cal Navarro
[2022-08-30 23:19] VITALS: BP 133/86
--- NOTE | 2022-08-30 23:38 | ED Physician Documentation ---
ED Addendum - Addendum Addendum: 08/30/22 23:35 The patient's father is here with him. The patient is voluntarily wanting treatment. Main issue for him is the substance abuse and symptoms that stem from that. The patient was in contact with it to detox facility and the patient was felt to be a good client for them by the intake person. The patient would like to go this route for inpatient treatment. The patient's father says he is able to take the patient there directly. He will therefore be inpatient and ge tting treatment starting this evening. This sounds reasonable disposition to me based on the descriptions from the prior emergency physician and the goals of treatment for psychiatry. The psychiatric note and lab tests and such will be sent with the patient so the interval will have access. They already had been faxed to them but will have a second set. The patient had come in tachycardic and a repeat heart rate is 88. Blood pressure is reasonable. No significant abnormalities on lab testing and he is medically cleared. Disposition: The patient is discharged from the emergency department in stable condition. He will be going to detox facility directly. Diagnoses: 1. Methamphetamine use and abuse 2. Thought process disorder 3. Depression 08/30/22 23:39
[2022-08-31] MEDS ORDERED: risperiDONE 1 MG TABLET PO SCH (21:00)
== END 2022-08-30 23:47 | disposition home or self-care (01) ==
LOC: ED 16:31
DX: F15.259 Other stimulant dependence with stimulant-induced psychotic disorder, unspecified (principal); F99 Mental disorder, not otherwise specified; F32.A Depression, unspecified; F17.200 Nicotine dependence, unspecified, uncomplicated; Z20.822 Contact with and (suspected) exposure to COVID-19
CPT/HCPCS: 36415; 80053; 80306; 80307; 80320; 80329; 81003; 83690; 84443; 85025; 87635; 99282; 99283; G0425; Q3014; 81001; 87086